=== PATIENT | male | born 1980 | race Caucasian/White ===

== ENCOUNTER 2024-12-20 14:24 | Emergency (ER) | payer OTHER, SELFPAY ==
[2024-12-20 14:26] VITALS: BP 166/88
--- NOTE | 2024-12-20 17:05 | ED.GENMED ---
History of Present Illness
General
Chief Complaint: Musculo-Skeletal Complaint
Time Seen by Provider: 12/20/24 16:23
History of Present Illness
History of Present Illness:
Patient is a 44-year-old man presenting to the emergency department knee pain. States that about a year ago he started getting the pain to the left knee. In September he started developing some pain to the right knee as well as mild swelling. Went to
his primary care doctor who ordered him x-rays which she did not obtain. Since then the pain has been worsening. He has been taking ibuprofen without relief. No numbness tingling. No weakness. No traumatic injuries. He is on his feet all day
long. No fevers chills. No redness or skin changes to the knee. No history of IV drug use.
Past History
Past History
ED Past Medical History: Psychiatric (Depression, substance abuse)
ED Past Surgical History: Appendectomy and Orthopedic
Social History
Tobacco: Smoker
Drug: Narcotics, IVDA and Other (PCP)
Phy Exam
Physical Exam
Physical Exam:
GENERAL: in no acute distress
HEENT: normocephalic, extraocular movements intact, moist oral mucosa
NECK: normal inspection
RESPIRATORY: no respiratory distress, clear to auscultation bilaterally
CARDIOVASCULAR: regular rate and rhythm
ABDOMEN/: soft, non-distended, non-tender to palpation, no rebound or guarding
EXTREMITIES: Bilateral knees with full range of motion and 5 out of 5 strength, mild swelling anteriorly at the knee with no redness or skin changes, normal sensation, normal cap refill
NEUROLOGIC: awake and alert, moves all extremities
SKIN: warm
Course
Orders/Labs/Results
Orders:
Orders
12/20/24 16:23
CR Knee - Left 4 Or More View* Urgent
Comment:
Reason For Exam: pain
CR Knee- Right 4 Or More View* Urgent
Comment:
Reason For Exam: pain
12/20/24 17:04
Ketorolac [Toradol] 15 mg IM NOW STA
Vital Signs
Initial and Last Documented VS:
Initial Vital Signs
Temp Pulse Resp BP Pulse Ox
97.5 F 75 16 166/88 100
12/20/24 14:26 12/20/24 14:26 12/20/24 14:26 12/20/24 14:26 12/20/24 14:26
Last Documented Vital Signs
Temp Pulse Resp BP Pulse Ox
97.5 F 75 16 166/88 100
12/20/24 14:26 12/20/24 14:26 12/20/24 14:26 12/20/24 14:12/20/24 17:07
MDM/Problems Addressed
Differential Diagnosis Includes:
44-year-old man presenting to the emergency department bilateral knee pain for the past few months. Vitals are unremarkable exam does show mild swelling to the suprapatellar region. This could be early arthritis. Less likely to be fracture.
History and exam not consistent with septic arthritis. X-ray obtained prior to my evaluation with bilateral suprapatellar effusions. Per the official read there is mild joint space narrowing of the low left and right medial tibiofemoral
compartment. Patient did receive Toradol which improved the pain significantly. Will discharge patient at this time with orthopedic follow-up. Pain medications were discussed. Strict return precautions given
*Pulse Oximetry
SaO2: 100
Oxygen Mode of Delivery: Room air
Patient hypoxic: no (100)
*Critical Care Note
Total Time (30-74mins, 75-104mins- exclusive of procedures): Not Applicable
ED Attending Note
-
Portions of this chart may have been created with voice recognition software.� Occasional wrong word or��sound alike� substitutions may have occurred due to the inherent limitations of voice recognition software.
Discharge Plan
Departure
Patient Disposition: Home (Routine Discharge)
Date of Disposition: 12/20/24
Time of Disposition: 19:09
Patient with high blood pressure during this ER visit?: No
Discharge Problem:
Bilateral knee pain, Bilateral knee effusions
Instructions: Knee Pain (DC)
Prescriptions:
No Action
Unobtainable
0
Referrals:
Sang Cochran DO [Family Provider]
Jack Rosen MD [Active, Orthopedics] - Call in 1-3 days for appt
Activity Restrictions/Additional Instructions:
We discussed pain medications:
You may take Tylenol (also known as Acetaminophen) for pain.
You may take 1000mg Acetaminophen (two extra-strength tablets) per dose, which should be taken every 6-8 hours, or three times a day.
If you have normal strength Tylenol, you can take 650mg (two normal strength tablets) every 4-6 hours.
Do not take more than 3,000mg (3 grams) of Acetaminophen per day.
Never take more than as directed on the bottle.
You may also take Ibuprofen (also known as Motrin or Advil). If taking with Tylenol, alternate and take between dosing.
You may take 400-800mg of Ibuprofen per dose, which should be taken every 6-8 hours.
Do not take more than 3200mg (3.2 grams) of Ibuprofen per day.
Please follow-up with the orthopedic surgeon as discussed.
We talked about your evaluation, diagnosis, and treatment in the Emergency Department today. You must see your primary doctor for recheck and followup care in order to evaluate your progress or any changes. Have your doctor recheck the test
results/information from the ED visit. As discussed, RETURN to the ED if you develop worsening/changing symptoms or have no improvement in symptoms after the treatments provided.
Interventions
Interventions:
*Risk Screen - Suicide Last Done: 12/20/24 14:28
*Neglect/Abuse Screening Last Done: 12/20/24 14:28
*Nursing Disposition Last Done: 12/20/24 19:14
ED-Musculoskeletal Assessment Last Done: 12/20/24 17:00
Discharge Date and Time
Print Language: NOR[place]
[2024-12-20] MEDS: TORADOL 15 MG IM (17:11)
== END 2024-12-20 19:14 | disposition home or self-care (01) ==
LOC: EMR 14:24
PROVIDERS: EMERGENCY PHYSICIAN Student in an Organized Health Care Education/Training Program; FAMILY PHYSICIAN Family Medicine
DX: M25.461 Effusion, right knee (principal); M25.462 Effusion, left knee; M25.562 Pain in left knee; M25.561 Pain in right knee; F17.200 Nicotine dependence, unspecified, uncomplicated
CPT/HCPCS: 99284; 96372; 73564